=== PATIENT | female | born 1935 | race Caucasian/White ===

== ENCOUNTER 2020-10-30 10:25 | Day surgery (SDC) | payer MEDICARE, BC, SELFPAY ==
[2020-10-30] VITALS (7 sets, daily range): BP systolic 118–156; BP diastolic 58–89; PULSE 62–70; RESP 14–18; TEMP 36.2–36.5; O2SAT 99–100; BMI 19.5
[2020-10-30] MEDS: Lactated Ringers 1,000 ML 100 ML IV (10:45)
[2020-10-30 11:08] LABS: Hematocrit 44.5 % (37-47); Hemoglobin 14.5 g/dL (12.0-15.0); Mean Corp Hgb Conc 32.6 g/dL (32-36); Mean Corpuscular Hgb 30.7 pg (27.0-32.0); Mean Corpuscular Volume 94.3 fL (81-99); Mean Platelet Vol. 8.6 fl (6.2-12.0); Platelet Count 235 K/mm3 (150-450); RBC Distribution Width CV 12.2 % (11.6-14.6); RBC Distribution Width SD 42.6 fl (35.1-43.9); Red Blood Count 4.72 M/mm3 (4.2-5.4); White Blood Count 6.8 K/mm3 (4.4-11.0)
[2020-10-30 11:23] LABS: Anion Gap 8 (5-15); BUN 23 mg/dL (7-18); BUN/Creat Ratio 21.5 RATIO (10-20); Calcium,Total 10.3 mg/dL (8.5-10.1); Chloride 103 mmol/L (98-107); Creatinine, Serum 1.07 mg/dL (0.55-1.02); EST Glomerular Filtration Rate 52 mL/min (>60); Est Glom Filt Rate - Afr Amer 63 mL/min (>60); Estimated Creatinine Clearance 28.03 ml/min; Glucose 97 mg/dL (74-106); Potassium 3.6 mmol/L (3.5-5.1); Sodium Level 138 mmol/L (136-145)
--- NOTE | 2020-10-30 11:49 | PCM.OPRPT ---
Problems Associated Problem List Diagnoses (1) Left renal stone: (2) Hydronephrosis: Report of Operation Date of Procedure: 10/30/20 Pre-Operative Diagnosis: Left renal calculus, hydronephrosis Post-Operative Diagnosis: Same Surgery/Procedure Performed:: Cystoscopy, left ureteral stent insertion, left extracorporal shockwave lithotripsy Surgeon: Tawnya Martini Type of Anesthesia: General Specimen's removed: None Description of Procedure: The patient is an 85-year-old female with a history of significant urinary tract infections found to have a large obstructing stone on the left side in the kidney. Informed consent was obtained and she now presents for surgical intervention. The patient was taken to the operating room and placed on the operating room table. Anesthesia monitored the head, neck, airway, IV access and vital signs throughout the case. Once anesthesia was appropriate ministered the patient was placed in dorsal lithotomy position was prepped and draped in usual sterile fashion. The cystoscope was inserted through the urethra under direct visualization into the urinary bladder. The bladder mucosa was visualized in its entirety and found to be without mass, lesion or abnormality. The left ureteral orifice was identified and intubated with a 0.035 Glidewire. A 6 [place] 22 cm JJ stent was passed over the Glidewire without difficulty and curled in the renal pelvis alongside the stone. Good positioning was observed in the urinary bladder. This time the bladder was emptied and the patient was repositioned on the lithotripter table. At this time, 3000 shocks were applied to the stone which appeared to be fragmented at the conclusion of the case. The patient was awakened and taken to the recovery room in good condition. There were no complications during this procedure. Grafts/Implants Used: 6x22 JJ stent Complications none Admit VTE Documentation VTE Present on Admission: Yes VTE Mechan Device Prophylaxis: SCD's VTE Pharm Prophylaxis ordered?: No Reason prophylaxis not ordered:: Treatment Not Indicated
--- NOTE | 2020-10-30 11:52 | PCM.DC ---
Discharge Instructions Diet Discharge Diet: No restrictions Activity Discharge Activity: Return to Normal Activity Dressing / Incision Call your doctor if you observe: Fever of 101 or Higher, Inability to urinate, Inability to have a bowel movement and Uncontrolled pain Follow Up Care Please Follow Up With: Tawnya Martini MD When: in 2-3 weeks in the office with KUB Test Results: Test results from this visit will be discussed in further detail at your follow-up appointment, if applicable. Discharge Plan Admission Attending Provider: Tawnya Martini Primary Care Provider: Eugenio Rodriguez Discharge Orders/Prescriptions Prescriptions: New oxycodone-acetaminophen [Percocet] 5-325 mg tablet 1 tab PO Q8H PRN (Reason: pain) 7 Days Qty: 20 RF: 0 cephalexin [cephalexin] 500 MG capsule 500 mg PO Q12 3 Days Qty: 6 RF: 0 phenazopyridine [phenazopyridine] 100 MG tablet 100 mg PO TID PRN (Reason: bladder spasms) Qty: 30 RF: 0 Continued multivitamin Tablet 1 tab PO DAILY RF: 0 acetaminophen [Tylenol] 325 mg Tablet 650 mg PO Q4H PRN (Reason: Pain) RF: 0 atorvastatin 20 mg tablet 20 mg PO QHS RF: 0 nitrofurantoin 100 mg Capsule 100 mg PO BID RF: 0 ascorbic acid (vitamin C) [Vitamin C] 500 mg Tablet 500 mg PO DAILY RF: 0 omega 2-jdz-xhz-fish oil [Fish Oil] 60-90-500 mg Capsule 1 cap PO DAILY RF: 0 cranberry 450 mg Tablet 450 mg PO DAILY RF: 0 Probiotic 10 billion cell Capsule 10,000 mmu cells PO DAILY RF: 0 Referrals / Follow Up: Eugenio Rodriguez DO [Primary Care Provider] - Disposition Disposition (needs filled in before D/C Order can be placed): Home, Self Care
[2020-10-30] MEDS: Cefazolin 2 GM in 0.9% Normal Saline 100 ML IV (11:54)
== END 2020-10-30 14:43 | disposition home or self-care (01) ==
LOC: SDC 10:31 → AC 10:34
PROVIDERS: PCP Family Medicine; Referring Provider Urology; Visit Provider Urology
PROC: (CPT 50590; principal; 2020-10-30 12:25)
DX: N13.2 Hydronephrosis with renal and ureteral calculous obstruction (principal); N39.46 Mixed incontinence; N95.2 Postmenopausal atrophic vaginitis; R35.1 Nocturia; E78.00 Pure hypercholesterolemia, unspecified; M19.90 Unspecified osteoarthritis, unspecified site; Z79.899 Other long term (current) drug therapy; Z87.440 Personal history of urinary (tract) infections
CPT/HCPCS: 00918; 52356; 80048; 85027; J7120; C2625; J2405

== ENCOUNTER → 2020-11-15 09:03 | Outpatient (CLI) | payer MEDICARE, BC, SELFPAY ==
--- NOTE | 2020-11-15 09:13 | RAD_ITS ---
EXAM: XR ABDOMEN, 1 VIEW CLINICAL INDICATION: KUB- KIDNEY STONES TECHNIQUE: Frontal supine view of the abdomen/pelvis. This report was created using Decal[employer] report generation technology. COMPARISON: None. FINDINGS: LOWER THORAX: No acute pathology. GASTROINTESTINAL TRACT: Stool throughout the colon. Non-obstructive. No bowel or stomach distention. ORGANS: There is a calculus visualized overlying the left kidney. This measures 9 mm. No organomegaly. BONES/JOINTS: There is scoliosis of the lumbar spine. Degenerative findings of the hips. SOFT TISSUES: No acute pathology. TUBES, LINES AND DEVICES: Double-J left ureteral stent in place. RAD/Abdomen Single View IMPRESSION: 1. Constipation. 2. There is a calculus visualized overlying the left kidney. This measures 9 mm. Double-J left ureteral stent in place. Electronically Signed: Chepe Calderon MD at 17:30 EDT , Service support ,
== END ==
PROVIDERS: PCP Family Medicine; Referring Provider Urology; Visit Provider Urology
DX: N20.0 Calculus of kidney (principal)
CPT/HCPCS: 74018

== ENCOUNTER → 2020-12-06 11:30 | Outpatient (CLI) | payer MEDICARE, BC, SELFPAY ==
--- NOTE | 2020-12-06 11:37 | RAD_ITS ---
INDICATION: KUB- STONES EXAMINATION/TECHNIQUE: X-RAY - XR Abdomen 1 View COMPARISON: 11/15/2020 FINDINGS: BOWEL GAS PATTERN: Non-obstructive. Large amount retained stool in colon. FREE AIR: Not assessed on a single supine view. ORGANOMEGALY: Not seen. CALCIFICATIONS: Multiple stones project over the left kidney, largest measuring 1.2 cm and in the lower pole. There is also a left nephroureteral stent in place. LOWER CHEST: No acute pathology. BONES AND SOFT TISSUES: No acute pathology. Degenerative changes of the spine and hips. RAD/Abdomen Single View IMPRESSION: Multiple stones project over the left kidney, largest measuring 1.2 cm and in the lower pole Electronically Signed: John Cutler MD at 17:57 EDT Tel , Service support ,
== END ==
PROVIDERS: PCP Family Medicine; Referring Provider Urology; Visit Provider Urology
DX: N20.0 Calculus of kidney (principal)
CPT/HCPCS: 74018

== ENCOUNTER 2021-01-05 05:44 | Day surgery (SDC) | payer MEDICARE, BC, SELFPAY ==
[2021-01-02 11:16] LABS: Anion Gap 6 (5-15); BUN 28 mg/dL (7-18); BUN/Creat Ratio 23.3 RATIO (10-20); Calcium,Total 10.6 mg/dL (8.5-10.1); Chloride 104 mmol/L (98-107); EST Glomerular Filtration Rate 45 mL/min (>60); Est Glom Filt Rate - Afr Amer 55 mL/min (>60); Glucose 116 mg/dL (74-106); Potassium 3.7 mmol/L (3.5-5.1); Sodium Level 138 mmol/L (136-145)
[2021-01-05] VITALS (10 sets, daily range): BP systolic 100–169; BP diastolic 47–77; PULSE 16–87; RESP 16; TEMP 36.3–37.4; O2SAT 95–100; BMI 18.9
--- NOTE | 2021-01-05 | CALC_PTH ---
PATIENT: [facility] LOC: [facility] U#:[id number] AGE/SX: 85/F ROOM: RE01/05/[address]: Dr. Tawnya Martini MD : [id number] BED: DIS: 01/05/2021 SPEC #: [id number] RECD: 01/05/21 10:18 STATUS: AKANKSHA CAVAZOS #: [id number] MEGHAN: 01/05/21 00:[address]: Tawnya Martini DEPT: SURGICAL PATHOLOGY RECD BY: Michelle Desai ENTERED: 01/05/21 11:51 SP TYPE: Calculi OTHR DR: Dr. Eugenio Rodriguez DO Tissues: CALCULI Procedures: Surgery Specimen Level I HEADER OPERATION: Cystoscopy, ureteroscopy, laser lithotripsy, stone basket extraction PRE-OP DIAGNOSIS: Calculus of kidney, hydronephrosis, urinary tract infection, postmenopausal atrophic vaginitis, nocturia, mixed incontinence TISSUE SUBMITTED: Left calculi GROSS DIAGNOSIS Left ureteral calculi, removal: Fragments of unremarkable calculi (gross diagnosis only). AM:mikie 01/08/2021 COMMENT The calculus is submitted in its entirety for chemical stone analysis. The results from this study will be reported separately. GROSS DESCRIPTION Received without fixative labeled with the patient's name and designated left ureteral calculi. The specimen consists of multiple irregular fragments of light osei calculi ranging in size from 0.1 to 0.2 cm and in aggregate measuring 0.5 x 0.2 x 0.1 cm. The entire specimen is submitted for stone analysis. / AM:mikie 01/05/21 CPT: 16192
[2021-01-05] MEDS: Lactated Ringers 1,000 ML 15 ML IV (06:35)
--- NOTE | 2021-01-05 07:28 | PCM.DC ---
Discharge Instructions Diet Discharge Diet: No restrictions Activity Discharge Activity: Return to Normal Activity May resume sexual activity in: No Restrictions Dressing / Incision Call your doctor if you observe: Fever of 101 or Higher, Inability to urinate, Inability to have a bowel movement and Uncontrolled pain Follow Up Care Please Follow Up With: Tawnya Martini MD Test Results: Test results from this visit will be discussed in further detail at your follow-up appointment, if applicable. Discharge Plan Admission Attending Provider: Tawnya Martini Primary Care Provider: Eugenio Rodriguez Discharge Orders/Prescriptions Prescriptions: New oxycodone-acetaminophen [Percocet] 5-325 mg tablet 1 tab PO Q8H PRN (Reason: pain) 5 Days Qty: 20 RF: 0 phenazopyridine [phenazopyridine] 100 MG tablet 100 mg PO TID Qty: 30 RF: 0 Continued multivitamin Tablet 1 tab PO DAILY RF: 0 acetaminophen [Tylenol] 325 mg Tablet 650 mg PO Q4H PRN (Reason: Pain) RF: 0 atorvastatin 20 mg tablet 20 mg PO QHS RF: 0 ascorbic acid (vitamin C) [Vitamin C] 500 mg Tablet 500 mg PO DAILY RF: 0 omega 7-qqq-wxo-fish oil [Fish Oil] 60-90-500 mg Capsule 1 cap PO DAILY RF: 0 cranberry 450 mg Tablet 450 mg PO TID RF: 0 Probiotic 10 billion cell Capsule 10,000 mmu cells PO DAILY RF: 0 nitrofurantoin monohyd/m-cryst [Macrobid] 100 mg capsule 100 mg PO DAILY RF: 0 Referrals / Follow Up: Eugenio Rodriguez DO [Primary Care Provider] - Disposition Disposition (needs filled in before D/C Order can be placed): Home, Self Care
[2021-01-05] MEDS: Cefazolin 2 GM in 0.9% Normal Saline 100 ML IV (07:29)
--- NOTE | 2021-01-05 07:31 | OP.PCM_ITS ---
Problems Associated Problem List Diagnoses (1) Hydronephrosis: (2) Left renal stone: Report of Operation Date of Procedure: 01/05/21 Pre-Operative Diagnosis: Left renal calculus, hydronephrosis Post-Operative Diagnosis: Same Surgery/Procedure Performed:: Cystoscopy, left ureteroscopy, holmium laser lithotripsy, stone basket extraction, left ureteral stent change Surgeon: Tawnya Martini Type of Anesthesia: General Specimen's removed: renal stones Description of Procedure: The patient is an 85-year-old female found to have a large left renal stone which is now status post stent insertion and extracorporal shockwave lithotripsy. There remains an approximately 1 cm stone in the lower pole of the left kidney. She now presents for removal of the stone fragments. Informed consent was obtained. The patient was taken to the operating room and placed on the operating room table. Anesthesia monitored the head, neck, airway, IV access and vital signs throughout the case. Once anesthesia was appropriate ministered the patient was placed into dorsal lithotomy position was prepped and draped in usual sterile fashion. The cystoscope was inserted through the urethra under direct visualization into the urinary bladder. The bladder mucosa revealed no evidence of abnormality aside from edema from the left ureteral stent. Two 0.035 Glidewires were inserted alongside the stent which was then removed without difficulty. One wire was used for safety the second, for placement of a ureteral reaccessed sheath which was done under fluoroscopy without difficulty. The flexible ureteroscope was then inserted through the reaccessed sheath into the ureter and then into the renal pelvis. The stones were identified, fragmented further with the laser as necessary and removed with a stone basket. At the conclusion of this part of the procedure, the ureteroscope was used to carefully remove the ureteral reaccess sheath under direct visualization. No ureteral injury was identified. The remaining safety wire was then used for insertion of a 6 [place] 22 cm double-J stent which achieved good curling in the renal pelvis as well as the urinary bladder. At this time the bladder was emptied and the case was terminated. The patient tolerated the procedure without difficulty or complication. She was awakened and taken to the recovery room in good condition. Grafts/Implants Used: 6x22 JJ stent Complications none Admit VTE Documentation VTE Present on Admission: Yes VTE Mechan Device Prophylaxis: SCD's VTE Pharm Prophylaxis ordered?: No Reason prophylaxis not ordered:: Treatment Not Indicated
== END 2021-01-05 11:07 | disposition home or self-care (01) ==
LOC: SDC 05:45 → AC 05:45
PROVIDERS: PCP Family Medicine; Referring Provider Urology; Visit Provider Urology
PROC: (CPT 52332; principal; 2021-01-05 07:20)
DX: N13.2 Hydronephrosis with renal and ureteral calculous obstruction (principal); N39.46 Mixed incontinence; N32.81 Overactive bladder; N95.2 Postmenopausal atrophic vaginitis; R35.1 Nocturia; E78.00 Pure hypercholesterolemia, unspecified; M19.90 Unspecified osteoarthritis, unspecified site; M81.0 Age-related osteoporosis without current pathological fracture; Z79.899 Other long term (current) drug therapy; Z87.440 Personal history of urinary (tract) infections
CPT/HCPCS: 52356; 36415; 76000; 80048; 88300; J7120; C2625; J2405

== ENCOUNTER → 2022-03-13 | Outpatient (CLI) | payer MEDICARE, BC, SELFPAY ==
--- NOTE | 2022-03-13 09:15 | RAD_ITS ---
STUDY: X-RAY - ABDOMEN/PELVIS REASON FOR EXAM: Female, 86 years old. Flank pain TECHNIQUE: Two AP supine views of the abdomen and pelvis. COMPARISON: 12/06/2020 FINDINGS: Previously noted left JJ stent has been removed. There is a moderate amount of colonic fecal material. There is no demonstrated free abdominal air. The visualized liver, spleen and kidneys are grossly normal in size and morphology. Normal soft tissue structures. There are diffuse degenerative changes of the visualized lumbar spine, and pelvis. RAD/Abdomen Single View IMPRESSION: No acute findings, retained stool Degenerative bony changes Electronically Signed: Nilo Gordon MD at 13:14 EST ,
== END | disposition home or self-care (01) ==
LOC: MTRAD 09:12
PROVIDERS: PCP Family Medicine; Referring Provider Urology; Visit Provider Urology
DX: N20.0 Calculus of kidney (principal)
CPT/HCPCS: 74018